=== PATIENT | female | born 1935 | race Caucasian/White ===

== ENCOUNTER → 2016-08-02 17:45 | Outpatient (CLI) | payer MEDICARE, BC | END | disposition home or self-care (01) | LOC: D.MAMMO 09:30 | DX: Z85.3 Personal history of malignant neoplasm of breast (principal) ==

== ENCOUNTER 2016-08-09 15:20 | Emergency (ER) | payer MEDICARE, BC ==
[2016-08-09 16:27] LABS: BASOPHILS 0.1 % (0.0-2.0); EOSINOPHILS 0 % (0-7); HEMATOCRIT 37.3 % (36.0-48.0); HEMOGLOBIN 12.4 g/dL (12-16); IMMATURE GRANULOCYTES 0.3 % (0-5); MCH 28.2 pg (26.0-34.0); MCHC 33.2 g/dL (31.0-37.0); NEUTROPHILS 79.6 % (40-80); PLATELET COUNT 319 10x3/uL (130-400); RBC 4.39 10x6/uL (4.00-5.40); RDW 13.6 % (11.5-14.5); WBC 11.1 10x3/uL (4.8-10.8)
[2016-08-09 16:42] LABS: ALBUMIN 3.8 g/dL (3.4-5.0); ANION GAP 12.4 mmol/L (8-16); BILIRUBIN - TOTAL 0.45 mg/dL (0.2-1.3); CALCIUM 9.7 mg/dL (8.5-10.1); CARBON DIOXIDE 28.7 mmol/L (21.0-32.0); CREATININE - SERUM 0.8 mg/dL (0.6-1.3); PROTEIN - SERUM 7.8 g/dL (6.4-8.2)
[2016-08-09 16:45] LABS: POTASSIUM - SERUM 4.1 mmol/L (3.5-5.1)
[2016-08-09 17:56] LABS: APPEARANCE HAZY (CLEAR); BILIRUBIN NEGATIVE (NEGATIVE); COLOR YELLOW (YELLOW); GLUCOSE NEGATIVE (NEGATIVE); KETONE NEGATIVE (NEGATIVE); LEUKOCYTE ESTERASE NEGATIVE (NEGATIVE); NITRITE NEGATIVE (NEGATIVE); PROTEIN NEGATIVE (NEGATIVE); UROBILINOGEN NORMAL (NORMAL)
== END 2016-08-09 19:19 | disposition home or self-care (01) ==
LOC: D.ER 15:20
PROVIDERS: Emergency Medicine
DX: E86.0 Dehydration (principal); K52.9 Noninfective gastroenteritis and colitis, unspecified

== ENCOUNTER → 2016-09-10 07:50 | Outpatient (CLI) | payer MEDICARE, BC | END | disposition home or self-care (01) | LOC: D.US 07:50 | DX: R10.13 Epigastric pain (principal) ==

== ENCOUNTER → 2017-04-09 08:25 | Outpatient (CLI) | payer MEDICARE, BC | END | disposition home or self-care (01) | LOC: D.US 08:25 | DX: Z85.3 Personal history of malignant neoplasm of breast (principal); Z90.11 Acquired absence of right breast and nipple ==

== ENCOUNTER 2017-05-05 09:21 | Emergency (ER) | payer MEDICARE, BC | END 2017-05-05 12:48 | disposition home or self-care (01) | LOC: D.ER 09:21 | DX: R07.81 Pleurodynia (principal) ==

== ENCOUNTER → 2017-07-16 07:32 | Outpatient (CLI) | payer MEDICARE, BC | END | disposition home or self-care (01) | LOC: D.NM 07-11 13:00 | DX: R10.11 Right upper quadrant pain (principal) ==

== ENCOUNTER → 2017-08-26 17:17 | Outpatient (CLI) | payer MEDICARE, BC | END | disposition home or self-care (01) | LOC: D.MAMMO 10:30 | DX: N64.4 Mastodynia (principal) ==

== ENCOUNTER 2018-01-02 17:44 | Emergency (ER) | payer MEDICARE, BC ==
[~2018-01-02] VITALS: Ht 157.5 cm; Wt 75.0 kg
[2018-01-02 18:02] VITALS: Ht 157.5 cm; Wt 75.0 kg
[2018-01-02] MEDS ORDERED: PRAVACHOL40 MG PO (18:03)
[2018-01-02] MEDS ORDERED: PEPCID20 MG PO (18:03)
[2018-01-02] MEDS ORDERED: OMEPRAZOLE20 M1 PO (18:03)
[2018-01-02] MEDS ORDERED: NORVASC5 MG PO (18:03)
[2018-01-02] MEDS ORDERED: COZAAR100 MG PO (18:04)
[2018-01-02] MEDS ORDERED: HUMULIN N100 U/ML SC (18:04)
[2018-01-02] MEDS ORDERED: MYRBETRIQ25 MG PO (18:04)
[2018-01-02] MEDS ORDERED: COMBIGAN OPHT DR5 ML EACH EYE (18:05)
[2018-01-02] MEDS ORDERED: HUMALOG 30100 UNITS/ SC (18:05)
[2018-01-02] MEDS ORDERED: AZOPT 1% OPHT D10 ML EACH EYE (18:05)
[2018-01-02] MEDS ORDERED: XALATAN 0.0052.5 ML EACH EYE (18:05)
[2018-01-02] MEDS ORDERED: MIRALAX17 GM PO (18:06)
[2018-01-02 18:54] LABS: APPEARANCE CLEAR (CLEAR); COLOR STRAW (YELLOW); NITRITE NEGATIVE (NEGATIVE); PROTEIN NEGATIVE (NEGATIVE); SPECIFIC GRAVITY 1.005 (1.005-1.020)
[2018-01-02 18:55] LABS: BILIRUBIN NEGATIVE (NEGATIVE); GLUCOSE 50 mg/dL (NEGATIVE); KETONE NEGATIVE (NEGATIVE); UROBILINOGEN NORMAL (NORMAL)
[2018-01-02 19:21] LABS: BASOPHILS 0.3 % (0-2); EOSINOPHILS 3.9 % (0-7); HEMATOCRIT 35.9 % (36.0-48.0); HEMOGLOBIN 11.7 g/dL (12-16); IMMATURE GRANULOCYTES 0.3 % (0-5); LYMPHOCYTES 16.7 % (15-50); MCH 27.9 pg (26.0-34.0); MCHC 32.6 g/dL (31.0-37.0); MCV 85.5 fL (80.0-100.0); MEAN PLATELET VOLUME 9.9 fL (7.4-10.4); MONOCYTES 11.2 % (2-11); NEUTROPHILS 67.6 % (40-80); PLATELET COUNT 276 10x3/uL (130-400); RDW 13.9 % (11.5-14.5); WBC 11.6 10x3/uL (4.8-10.8)
[2018-01-02 19:34] LABS: ALBUMIN 3.1 g/dL (3.4-5.0); ANION GAP 10.9 mmol/L (8-16); BILIRUBIN - TOTAL 0.28 mg/dL (0.2-1.3); CALCIUM 8.9 mg/dL (8.5-10.1); CARBON DIOXIDE 26.6 mmol/L (21.0-32.0); POTASSIUM - SERUM 4.5 mmol/L (3.5-5.1); PROTEIN - SERUM 7.3 g/dL (6.4-8.2)
[2018-01-02] MEDS ORDERED: FLAGYL500 MG PO (22:10)
[2018-01-02] MEDS ORDERED: CIPRO500 MG PO (22:10)
[2018-01-02] MEDS ORDERED: ZOFRAN ODT4 MG/UDTAB PO ×2 (22:12)
[2018-01-02 22:30] VITALS: BP 176/90
== END 2018-01-02 22:30 | disposition home or self-care (01) ==
LOC: D.ER 17:44
PROVIDERS: Emergency Medicine
DX: K57.92 Diverticulitis of intestine, part unspecified, without perforation or abscess without bleeding (principal); E11.9 Type 2 diabetes mellitus without complications; I10 Essential (primary) hypertension; Z95.0 Presence of cardiac pacemaker

== ENCOUNTER → 2018-01-20 13:03 | Outpatient (CLI) | payer MEDICARE, BC ==
[2018-01-02 18:02] VITALS: BMI 30.2
[~2018-01-20 13:03] MED LIST: AZOPT 1% OPHT D10 ML EACH EYE; CIPRO500 MG PO; COMBIGAN OPHT DR5 ML EACH EYE; COZAAR100 MG PO; FLAGYL500 MG PO; HUMALOG 30100 UNITS/ SC; HUMULIN N100 U/ML SC; MIRALAX17 GM PO; MYRBETRIQ25 MG PO; NORVASC5 MG PO; OMEPRAZOLE20 M1 PO; PEPCID20 MG PO; PRAVACHOL40 MG PO; XALATAN 0.0052.5 ML EACH EYE; ZOFRAN ODT4 MG/UDTAB PO
== END | disposition home or self-care (01) ==
LOC: D.CT 13:03
DX: M54.16 Radiculopathy, lumbar region (principal)

== ENCOUNTER 2018-05-02 08:31 | Emergency (ER) | payer MEDICARE, BC ==
[~2018-05-02] VITALS: Ht 157.5 cm; Wt 74.1 kg
[2018-05-02 08:50] VITALS: Ht 157.5 cm; Wt 74.1 kg
[2018-05-02 09:46] LABS: BASOPHILS 0.1 % (0-2); EOSINOPHILS 1.2 % (0-7); HEMATOCRIT 35.8 % (36.0-48.0); HEMOGLOBIN 11.7 g/dL (12-16); IMMATURE GRANULOCYTES 0.3 % (0-5); LYMPHOCYTES 10.6 % (15-50); MCH 28.5 pg (26.0-34.0); MCHC 32.7 g/dL (31.0-37.0); MCV 87.3 fL (80.0-100.0); MEAN PLATELET VOLUME 10.4 fL (7.4-10.4); MONOCYTES 7.4 % (2-11); NEUTROPHILS 80.4 % (40-80); PLATELET COUNT 304 10x3/uL (130-400); RDW 14.8 % (11.5-14.5); WBC 13.9 10x3/uL (4.8-10.8)
[2018-05-02 09:54] LABS: APPEARANCE CLEAR (CLEAR); BILIRUBIN NEGATIVE (NEGATIVE); COLOR YELLOW (YELLOW); GLUCOSE NEGATIVE (NEGATIVE); KETONE NEGATIVE (NEGATIVE); NITRITE NEGATIVE (NEGATIVE); PROTEIN NEGATIVE (NEGATIVE); UROBILINOGEN NORMAL (NORMAL)
[2018-05-02 09:55] LABS: BACTERIA FEW /hpf (NONE SEEN); EPITHELIAL CELLS 0-5 /hpf (0-5); RED CELLS - URINE 0-5 /hpf (0-5); WHITE CELLS - URINE 0-5 /hpf (0-5)
[2018-05-02 10:00] LABS: ALBUMIN 3.2 g/dL (3.4-5.0); ANION GAP 14.9 mmol/L (8-16); BILIRUBIN - TOTAL 0.31 mg/dL (0.2-1.3); CALCIUM 9.3 mg/dL (8.5-10.1); CARBON DIOXIDE 24.5 mmol/L (21.0-32.0); CREATININE - SERUM 0.9 mg/dL (0.6-1.3); POTASSIUM - SERUM 4.4 mmol/L (3.5-5.1); PROTEIN - SERUM 7.5 g/dL (6.4-8.2)
[2018-05-02] MEDS ORDERED: TYLENOL W/CODEI1 TAB PO (13:12)
[2018-05-02] MEDS ORDERED: LEVOFLOXACIN500 MG PO (13:12)
[2018-05-02] MEDS ORDERED: FLAGYL500 MG PO (13:12)
[2018-05-02 13:56] VITALS: BP 117/56
== END 2018-05-02 13:57 | disposition home or self-care (01) ==
LOC: D.ER 08:31
PROVIDERS: Family Medicine
DX: K57.92 Diverticulitis of intestine, part unspecified, without perforation or abscess without bleeding (principal); I10 Essential (primary) hypertension; E11.9 Type 2 diabetes mellitus without complications; Z85.3 Personal history of malignant neoplasm of breast

== ENCOUNTER 2018-05-07 12:48 | Emergency (ER) | payer MEDICARE, BC ==
[~2018-05-07] VITALS: Ht 157.5 cm; Wt 74.1 kg
[~2018-05-07 12:48] MED LIST changes: +LEVOFLOXACIN500 MG PO; +TYLENOL W/CODEI1 TAB PO
[2018-05-07 12:50] VITALS: BP 162/75; Ht 157.5 cm; Wt 74.1 kg
[2018-05-07] MEDS ORDERED: COZAAR50 MG PO (13:16)
[2018-05-07] MEDS ORDERED: RESTORIL15 MG PO (13:16)
[2018-05-07] MEDS ORDERED: HUMULIN N100 U/ML SC (13:18)
[2018-05-07] MEDS ORDERED: COMBIGAN OPHT DR5 ML EACH EYE (13:19)
[2018-05-07] MEDS ORDERED: AZOPT 1% OPHT D10 ML EACH EYE (13:20)
[2018-05-07] MEDS ORDERED: XALATAN 0.0052.5 ML EACH EYE (13:20)
[2018-05-07] MEDS ORDERED: SYSTANE NIGHTT3.5 GM EACH EYE (13:21)
[2018-05-07] MEDS ORDERED: TOBREX5 ML (13:22)
[2018-05-07] MEDS ORDERED: CARAFATE1 G PO (13:22)
[2018-05-07 13:55] LABS: BASOPHILS 0.3 % (0-2); EOSINOPHILS 1.3 % (0-7); HEMATOCRIT 38.5 % (36.0-48.0); HEMOGLOBIN 12.7 g/dL (12-16); IMMATURE GRANULOCYTES 0.1 % (0-5); LYMPHOCYTES 16.9 % (15-50); MCH 28.7 pg (26.0-34.0); MCV 86.9 fL (80.0-100.0); MEAN PLATELET VOLUME 10.2 fL (7.4-10.4); MONOCYTES 8.9 % (2-11); NEUTROPHILS 72.5 % (40-80); PLATELET COUNT 314 10x3/uL (130-400); RBC 4.43 10x6/uL (4.00-5.40); RDW 14.4 % (11.5-14.5); WBC 9.1 10x3/uL (4.8-10.8)
[2018-05-07] MEDS ORDERED: ANALPRAM HC 2.530 GM RC (15:05)
== END 2018-05-07 15:16 | disposition home or self-care (01) ==
LOC: D.ER 12:48
PROVIDERS: Family Medicine
DX: K62.89 Other specified diseases of anus and rectum (principal); E11.9 Type 2 diabetes mellitus without complications; I10 Essential (primary) hypertension

== ENCOUNTER → 2018-05-29 11:37 | Day surgery (SDC) | payer MEDICARE, BC ==
[~2018-05-29] VITALS: Ht 157.5 cm; Wt 74.1 kg
--- NOTE | ~2018-05-29 | OP ---
PATIENT NAME: MATT RUGGIERO MEDICAL RECORD: [id number] :37 LOCATION:D.OPS ADMISSION DATE: SURGEON: CATHIE GUERRA MD DATE OF OPERATION: 05/29/2018 PROCEDURE: EGD with biopsy, EGD with balloon dilatation. STEREO OPERATOR: Cathie Guerra MD SCOPE: Olympus video gastroscope. MEDICATIONS: Per TIVA anesthesia. The patient received 80 mg of propofol IV push for this procedure, O2 of 4 liters. INDICATION FOR THE PROCEDURE: Dysphagia, gastroesophageal reflux disease as well as abdominal pain. FINDINGS: Informed consent was given. The patient was made comfortable with the above medications. After reaching an adequate level of sedation by slow IV push, the patient was placed on her left side. The endoscope was then advanced under direct visualization through the posterior pharyngeal area and advanced to the distal esophagus. A very thick Schatzki's ring was appreciated in this area followed by a large hiatal hernia, which was noted on both direct and retroflex views. We did place a CRE Microvasive balloon in this strictured area and slowly dilated to 60 South [place] and held the balloon in place for 1 minute without complication. We proceeded then to take multiple biopsies off this ring to further relax the area. The patient did appear to have a twist of the gastroesophageal junction and I suspect that she may be slowly developing volvulus. We then passed the scope through the hiatal hernia where the patient had a copious amount of hemorrhagic gastritis with oozing of the gastric mucosa. This area was washed and no ulcers were seen. She simply has very significant inflammation in this area, which is bleeding. We then proceeded to advance the scope into the gastric area where some erosions were noted at the antral area and biopsies were taken. No ulcers again were appreciated. The duodenal bulb to the second portion had mild inflammation with some erythema and edema and a very slight amount of hemorrhagic oozing was observed. Biopsies were obtained. The scope was then withdrawn. IMPRESSION: 1. Distal esophageal stricture dilated to 60-[place] Korean without complication very thick Schatzki's ring biopsied also erosive distal esophagitis. 2. The patient is possibly beginning to have a slight developing volvulus with a twist noted at the gastroesophageal junction causing some irregular placement of the scope. 3. Medium-sized hiatal hernia with hemorrhagic gastritis. 4. Gastric erosions, some bilious gastritis observed. Biopsy taken at the antral area. 5. Mild duodenitis with a slight amount of hemorrhage noted. Biopsy obtained. PLAN: 1. We will ask the patient to take sucralfate 1 g p.o. q.i.d. 2. Recommend famotidine 20 mg p.o. b.i.d. 3. Avoid nonsteroidal anti-inflammatory drugs. 4. The patient to follow reflux precautions stringently, both dietary and positional. OPERATIVE REPORT [id number] MATT RUGGIERO 5. Return to clinic on a p.r.n. basis. 6. Would recommend an upper GI, looking for the presence of a volvulus. TRANSINT:[id number] Voice Confirmation ID: [id number] DOCUMENT ID: [id number] CATHIE GUERRA MD CC: NGUYEN PEREIRA and SOCRATES BILLS [id number] DICTATION DATE: 05/29/18 1459 PAPIER MACHE MOLDER: 05/29/182012 [facility] [address] [place] [address]
[~2018-05-29 11:37] MED LIST changes: +ANALPRAM HC 2.530 GM RC; +CARAFATE1 G PO; +COZAAR50 MG PO; +RESTORIL15 MG PO; +SYSTANE NIGHTT3.5 GM EACH EYE; +TOBREX5 ML
[2018-05-29 12:13] LABS: CALC OSMOLALITY 281 mosm/kg (275-300); CALCIUM 9.7 mg/dL (8.5-10.1); CARBON DIOXIDE 24.6 mmol/L (21.0-32.0); CHLORIDE - SERUM 101 mmol/L (98-107); CREATININE - SERUM 0.7 mg/dL (0.6-1.3); POTASSIUM - SERUM 4.8 mmol/L (3.5-5.1); SODIUM 134 mmol/L (136-145); UREA NITROGEN 17 mg/dL (7-18); eGFR NON AFRICAN AMERICAN 85 mL/min (90-120)
[2018-05-29 12:14] LABS: GLUCOSE 323 mg/dL (74-106)
[2018-05-29 12:33] LABS: HEMATOCRIT 41.2 % (36.0-48.0); HEMOGLOBIN 13.3 g/dL (12-16); MCH 28.1 pg (26.0-34.0); MCHC 32.3 g/dL (31.0-37.0); MCV 87.1 fL (80.0-100.0); MEAN PLATELET VOLUME 10.8 fL (7.4-10.4); RBC 4.73 10x6/uL (4.00-5.40); RDW 14.9 % (11.5-14.5); WBC 6.3 10x3/uL (4.8-10.8)
[2018-05-29 13:50] VITALS: BP 148/74; Ht 157.5 cm; Wt 74.1 kg
== END | disposition home or self-care (01) ==
LOC: D.OPS 11:37
PROVIDERS: Anesthesiology
DX: K22.2 Esophageal obstruction (principal); K44.9 Diaphragmatic hernia without obstruction or gangrene; K22.10 Ulcer of esophagus without bleeding; K29.61 Other gastritis with bleeding; K29.80 Duodenitis without bleeding; K21.0 Gastro-esophageal reflux disease with esophagitis; Z01.812 Encounter for preprocedural laboratory examination

== ENCOUNTER → 2018-05-30 13:20 | Outpatient (CLI) | payer MEDICARE, BC ==
[2018-05-29 13:50] VITALS: BMI 29.9
== END | disposition home or self-care (01) ==
LOC: D.US 13:20
DX: Z12.31 Encounter for screening mammogram for malignant neoplasm of breast (principal)

== ENCOUNTER → 2018-06-12 06:57 | Outpatient (CLI) | payer MEDICARE, BC ==
[2018-05-29 13:50] VITALS: BMI 29.9
[~2018-06-12 06:57] MED LIST changes: +MACROBID100 MG PO
== END | disposition home or self-care (01) ==
LOC: D.RAD 06:57
DX: R10.11 Right upper quadrant pain (principal)

== ENCOUNTER 2018-06-15 17:41 | Emergency (ER) | payer MEDICARE, BC ==
[~2018-06-15] VITALS: Ht 157.5 cm; Wt 72.7 kg
[~2018-06-15 17:41] MED LIST changes: -MACROBID100 MG PO
[2018-06-15 17:54] VITALS: Ht 157.5 cm; Wt 72.7 kg
[2018-06-15 18:44] LABS: APPEARANCE CLEAR (CLEAR); BASOPHILS 0.5 % (0-2); BILIRUBIN NEGATIVE (NEGATIVE); COLOR STRAW (YELLOW); EOSINOPHILS 2.9 % (0-7); GLUCOSE NEGATIVE (NEGATIVE); HEMOGLOBIN 11.8 g/dL (12-16); IMMATURE GRANULOCYTES 0.2 % (0-5); KETONE NEGATIVE (NEGATIVE); LYMPHOCYTES 17.8 % (15-50); MCH 28.5 pg (26.0-34.0); MCHC 33.7 g/dL (31.0-37.0); MCV 84.5 fL (80.0-100.0); MEAN PLATELET VOLUME 11.2 fL (7.4-10.4); MONOCYTES 10.7 % (2-11); NEUTROPHILS 67.9 % (40-80); NITRITE NEGATIVE (NEGATIVE); PROTEIN NEGATIVE (NEGATIVE); RBC 4.14 10x6/uL (4.00-5.40); RDW 14.9 % (11.5-14.5); UROBILINOGEN NORMAL (NORMAL); WBC 8.6 10x3/uL (4.8-10.8)
[2018-06-15 18:45] LABS: BACTERIA MODERATE /hpf (NONE SEEN); RED CELLS - URINE 0-5 /hpf (0-5)
[2018-06-15 18:46] LABS: EPITHELIAL CELLS 0-5 /hpf (0-5)
[2018-06-15 18:48] LABS: PLATELET COUNT 312 10x3/uL (130-400)
[2018-06-15 18:55] LABS: ALBUMIN 3.6 g/dL (3.4-5.0); ANION GAP 15.3 mmol/L (8-16); BILIRUBIN - TOTAL 0.38 mg/dL (0.2-1.3); CALCIUM 9.8 mg/dL (8.5-10.1); CARBON DIOXIDE 26.9 mmol/L (21.0-32.0); CREATININE - SERUM 0.8 mg/dL (0.6-1.3); POTASSIUM - SERUM 4.2 mmol/L (3.5-5.1); PROTEIN - SERUM 7.5 g/dL (6.4-8.2)
[2018-06-15] MEDS ORDERED: MACROBID100 MG PO (20:30)
[2018-06-15] MEDS ORDERED: ZOFRAN ODT4 MG/UDTAB PO (20:30)
[2018-06-15 21:05] VITALS: BP 167/87
== END 2018-06-15 21:05 | disposition home or self-care (01) ==
LOC: D.ER 17:41
PROVIDERS: Family Medicine
DX: N39.0 Urinary tract infection, site not specified (principal); K44.9 Diaphragmatic hernia without obstruction or gangrene; R11.2 Nausea with vomiting, unspecified; E11.9 Type 2 diabetes mellitus without complications; I10 Essential (primary) hypertension; Z85.3 Personal history of malignant neoplasm of breast

== ENCOUNTER → 2018-07-04 12:56 | Outpatient (CLI) | payer MEDICARE, BC ==
[2018-06-15 17:54] VITALS: BMI 29.3
[~2018-07-04 12:56] MED LIST changes: +MACROBID100 MG PO
== END | disposition home or self-care (01) ==
LOC: D.US 12:56
DX: R92.8 Other abnormal and inconclusive findings on diagnostic imaging of breast (principal)

== ENCOUNTER 2018-08-02 02:16 | Emergency (ER) | payer MEDICARE, BC ==
[~2018-08-02] VITALS: Ht 157.5 cm; Wt 71.8 kg
[2018-08-02 02:22] VITALS: Ht 157.5 cm; Wt 71.8 kg
[2018-08-02 03:53] LABS: BASOPHILS 0.2 % (0-2); EOSINOPHILS 2.1 % (0-7); HEMATOCRIT 35.2 % (36.0-48.0); HEMOGLOBIN 11.7 g/dL (12-16); IMMATURE GRANULOCYTES 0.2 % (0-5); MCH 28.2 pg (26.0-34.0); MCHC 33.2 g/dL (31.0-37.0); MCV 84.8 fL (80.0-100.0); MEAN PLATELET VOLUME 10.3 fL (7.4-10.4); MONOCYTES 8.3 % (2-11); NEUTROPHILS 74.2 % (40-80); PLATELET COUNT 301 10x3/uL (130-400); RBC 4.15 10x6/uL (4.00-5.40); RDW 13.9 % (11.5-14.5); WBC 9.7 10x3/uL (4.8-10.8)
[2018-08-02 04:06] LABS: ALBUMIN 3.5 g/dL (3.4-5.0); ALKALINE PHOSPHATASE 63 U/L (46-116); ALT (SGPT) 17 U/L (10-68); BILIRUBIN - TOTAL 0.31 mg/dL (0.2-1.3); CALC OSMOLALITY 274 mosm/kg (275-300); CALCIUM 9.3 mg/dL (8.5-10.1); CARBON DIOXIDE 25.8 mmol/L (21.0-32.0); CHLORIDE - SERUM 102 mmol/L (98-107); CREATININE - SERUM 0.6 mg/dL (0.6-1.3); MAGNESIUM - SERUM 1.9 mg/dL (1.8-2.4); PROTEIN - SERUM 7.2 g/dL (6.4-8.2); SODIUM 138 mmol/L (136-145); UREA NITROGEN 17 mg/dL (7-18); eGFR NON AFRICAN AMERICAN > 90 mL/min (90-120)
[2018-08-02 04:08] LABS: GLUCOSE 43 mg/dL (74-106)
[2018-08-02] MEDS ORDERED: K-DUR20 MEQ PO (04:22)
[2018-08-02] MEDS ORDERED: ZOFRAN ODT4 MG/UDTAB PO (04:22)
[2018-08-02 05:15] VITALS: BP 142/59
== END 2018-08-02 05:15 | disposition home or self-care (01) ==
LOC: D.ER 02:16
PROVIDERS: Emergency Medicine
DX: R11.10 Vomiting, unspecified (principal); D64.9 Anemia, unspecified; E11.649 Type 2 diabetes mellitus with hypoglycemia without coma; E87.6 Hypokalemia; I10 Essential (primary) hypertension

== ENCOUNTER 2018-10-19 00:48 | Emergency (ER) | payer MEDICARE, BC ==
[~2018-10-19] VITALS: Ht 157.5 cm; Wt 75.0 kg
[~2018-10-19 00:48] MED LIST changes: +K-DUR20 MEQ PO
[2018-10-19 00:53] VITALS: Ht 157.5 cm; Wt 75.0 kg
[2018-10-19] MEDS ORDERED: HUMULIN N100 U/ML SQ (00:56)
[2018-10-19 01:10] LABS: APPEARANCE HAZY (CLEAR); BILIRUBIN NEGATIVE (NEGATIVE); COLOR YELLOW (YELLOW); GLUCOSE NEGATIVE (NEGATIVE); KETONE NEGATIVE (NEGATIVE); NITRITE NEGATIVE (NEGATIVE); PROTEIN NEGATIVE (NEGATIVE); UROBILINOGEN NORMAL (NORMAL)
[2018-10-19 01:11] LABS: BACTERIA MANY /hpf (NONE SEEN); EPITHELIAL CELLS NSEEN /hpf (0-5); RED CELLS - URINE NONE SEEN /hpf (0-5); WHITE CELLS - URINE 25-50 /hpf (0-5)
[2018-10-19] MEDS ORDERED: KEFLEX500 MG PO (01:59)
[2018-10-19 03:13] VITALS: BP 154/70
== END 2018-10-19 03:13 | disposition home or self-care (01) ==
LOC: D.ER 00:48
PROVIDERS: Family Medicine
DX: R33.9 Retention of urine, unspecified (principal); N39.0 Urinary tract infection, site not specified

== ENCOUNTER 2018-10-27 10:04 | Emergency (ER) | payer MEDICARE, BC ==
[~2018-10-27 10:04] MED LIST changes: +HUMULIN N100 U/ML SQ; +KEFLEX500 MG PO
[2018-10-27 10:08] VITALS: BMI 28.4
[2018-10-27] MEDS ORDERED: CIPRO500 MG PO (10:14)
[2018-10-27 11:15] LABS: APPEARANCE HAZY (CLEAR); BILIRUBIN NEGATIVE (NEGATIVE); COLOR YELLOW (YELLOW); GLUCOSE 500 mg/dL (NEGATIVE); KETONE SMALL mg/dL (NEGATIVE); NITRITE NEGATIVE (NEGATIVE); PROTEIN NEGATIVE (NEGATIVE); SPECIFIC GRAVITY 1.025 (1.005-1.020); UROBILINOGEN NORMAL (NORMAL)
[2018-10-27 11:16] LABS: BACTERIA FEW /hpf (NONE SEEN); EPITHELIAL CELLS 0-5 /hpf (0-5); HYALINE CAST RARE /lpf (NONE SEEN); MUCUS <1+ /lpf (NONE SEEN); RED CELLS - URINE RARE /hpf (0-5); WHITE CELLS - URINE 0-5 /hpf (0-5); YEAST <1+ /hpf (NONE SEEN)
[2018-10-27] MEDS ORDERED: DIFLUCAN150 MG PO (11:50)
[2018-10-27 12:10] VITALS: BP 114/60
== END 2018-10-27 12:10 | disposition home or self-care (01) ==
LOC: D.ER 10:04
PROVIDERS: Emergency Medicine
DX: N39.0 Urinary tract infection, site not specified (principal); E11.9 Type 2 diabetes mellitus without complications; I10 Essential (primary) hypertension; N76.0 Acute vaginitis

== ENCOUNTER 2018-12-10 10:09 | Emergency (ER) | payer MEDICARE, BC ==
[~2018-12-10] VITALS: Ht 157.5 cm; Wt 69.1 kg
[~2018-12-10 10:09] MED LIST changes: +DIFLUCAN150 MG PO
[2018-12-10 10:11] VITALS: Ht 157.5 cm; Wt 69.1 kg
[2018-12-10] MEDS ORDERED: AZOPT 1% OPHT D10 ML EACH EYE (10:15)
[2018-12-10 11:14] LABS: APPEARANCE CLEAR (CLEAR); BILIRUBIN NEGATIVE (NEGATIVE); COLOR STRAW (YELLOW); GLUCOSE 250 mg/dL (NEGATIVE); KETONE NEGATIVE (NEGATIVE); NITRITE NEGATIVE (NEGATIVE); PROTEIN NEGATIVE (NEGATIVE); SPECIFIC GRAVITY 1.005 (1.005-1.020); UROBILINOGEN NORMAL (NORMAL)
[2018-12-10 11:29] LABS: BASOPHILS 0.6 % (0-2); EOSINOPHILS 2.3 % (0-7); HEMATOCRIT 40.1 % (36.0-48.0); HEMOGLOBIN 13.3 g/dL (12-16); IMMATURE GRANULOCYTES 0.5 % (0-5); LYMPHOCYTES 19.6 % (15-50); MCH 28.8 pg (26.0-34.0); MCHC 33.2 g/dL (31.0-37.0); MCV 86.8 fL (80.0-100.0); MEAN PLATELET VOLUME 10.7 fL (7.4-10.4); MONOCYTES 6.2 % (2-11); NEUTROPHILS 70.8 % (40-80); RBC 4.62 10x6/uL (4.00-5.40); RDW 15.6 % (11.5-14.5); WBC 6.6 10x3/uL (4.8-10.8)
[2018-12-10 11:30] LABS: PLATELET COUNT 168 10x3/uL (130-400)
[2018-12-10 11:44] LABS: ALBUMIN 4.3 g/dL (3.4-5.0); ALKALINE PHOSPHATASE 65 U/L (46-116); ALT (SGPT) 28 U/L (10-68); CALC OSMOLALITY 285 mosm/kg (275-300); CALCIUM 10.3 mg/dL (8.5-10.1); CHLORIDE - SERUM 103 mmol/L (98-107); CREATININE - SERUM 0.6 mg/dL (0.6-1.3); POTASSIUM - SERUM 4.2 mmol/L (3.5-5.1); PROTEIN - SERUM 8.1 g/dL (6.4-8.2); SODIUM 139 mmol/L (136-145); UREA NITROGEN 19 mg/dL (7-18); eGFR NON AFRICAN AMERICAN > 90 mL/min (90-120)
[2018-12-10 11:45] LABS: GLUCOSE 211 mg/dL (74-106)
[2018-12-10 12:30] VITALS: BP 144/55
== END 2018-12-10 12:40 | disposition home or self-care (01) ==
LOC: D.ER 10:09
PROVIDERS: Family Medicine
DX: M54.5 Low back pain (principal)

== ENCOUNTER 2018-12-23 09:33 | Inpatient (IN) | payer MEDICARE, BC ==
[~2018-12-23] VITALS: Ht 157.5 cm; Wt 69.1 kg
[2018-12-23 10:24] LABS: BASOPHILS 0.2 % (0-2); HEMOGLOBIN 13.1 g/dL (12-16); IMMATURE GRANULOCYTES 0.2 % (0-5); LYMPHOCYTES 16.8 % (15-50); MCHC 33.6 g/dL (31.0-37.0); MCV 86.5 fL (80.0-100.0); MEAN PLATELET VOLUME 10.2 fL (7.4-10.4); MONOCYTES 4.8 % (2-11); RBC 4.51 10x6/uL (4.00-5.40); RDW 15.3 % (11.5-14.5); WBC 12.2 10x3/uL (4.8-10.8)
[2018-12-23 10:35] VITALS: BP 142/63
[2018-12-23 10:39] LABS: PLATELET COUNT 327 10x3/uL (130-400)
[2018-12-23 10:43] LABS: ALBUMIN 4.3 g/dL (3.4-5.0); ALKALINE PHOSPHATASE 81 U/L (46-116); ALT (SGPT) 31 U/L (10-68); BILIRUBIN - TOTAL 0.45 mg/dL (0.2-1.3); CALC OSMOLALITY 280 mosm/kg (275-300); CALCIUM 10.3 mg/dL (8.5-10.1); CARBON DIOXIDE 24.8 mmol/L (21.0-32.0); CHLORIDE - SERUM 99 mmol/L (98-107); CREATININE - SERUM 0.9 mg/dL (0.6-1.3); GLUCOSE 255 mg/dL (74-106); POTASSIUM - SERUM 4.9 mmol/L (3.5-5.1); PROTEIN - SERUM 8.4 g/dL (6.4-8.2); SODIUM 134 mmol/L (136-145); UREA NITROGEN 24 mg/dL (7-18); eGFR NON AFRICAN AMERICAN 63 mL/min (90-120)
[2018-12-23 10:44] LABS: AMYLASE - SERUM 48 U/L (25-115); LIPASE 171 U/L (73-393); TROPONIN-I < 0.017 ng/mL (0.000-0.060)
--- NOTE | 2018-12-23 10:45 | NUR ---
URINE SAMPLE SENT TO LAB AT THIS TIME. PT IS LAYING IN SEMI-FOWLERS POSITION. BREATHING IS EVEN AND UNLABORED. WARM BLANKET PROVIDED FOR COMFORT AND PT CHANGED INTO GOWN. PT DENIES FURTHER NEEDS AT THIS TIME. WILL CONTINUE TO MONITOR.
[2018-12-23 10:53] LABS: APPEARANCE CLEAR (CLEAR); BILIRUBIN NEGATIVE (NEGATIVE); COLOR YELLOW (YELLOW); GLUCOSE 250 mg/dL (NEGATIVE); KETONE NEGATIVE (NEGATIVE); NITRITE NEGATIVE (NEGATIVE); PROTEIN NEGATIVE (NEGATIVE); SPECIFIC GRAVITY 1.015 (1.005-1.020); UROBILINOGEN NORMAL (NORMAL)
--- NOTE | 2018-12-23 11:01 | NUR ---
PT LEAVING ED VIA STRETCHER TO MEDICAL IMAGING FOR ORDERED CT AT THIS TIME.
[2018-12-23 11:45] VITALS: BP 116/60
--- NOTE | 2018-12-23 13:11 | MORECARE ---
CASE MANAGEMENT DISCHARGE SUMMARY PATIENT: MANUEL RUGGIERO UNIT: [id number] ADM DATE: 12/23/18 AGE: 83 : 36 SEX: F ROOM/BED: D.2211 AUTHOR: JUJU BAIRD PHYSICIAN: REFERRING PHYSICIAN: OSIRIS JEAN BAPTISTE MD DATE OF SERVICE: 12/23/18 Discharge Plan Patient Name: MANUEL RUGGIERO Facility: [facility]:[place] : 1935 Planned Disposition: Home Anticipated Discharge Date: 12/26/18 Discharge Date: Expected LOS: 3 Initial Reviewer: [email or web address] Initial Review Date: 12/23/2018 Generated: 12/23/18 2:11 pm DCP- Discharge Planning Updated by [email or web address]: Mireya Garcia on 12/23/18 12:[address] Patient Name: MANUEL RUGGIERO Admission Status: ER Accout number: [id number] Admission Date: 12-23-2018 : 1935 Admission Diagnosis: Attending: OSIRIS JEAN BAPTISTE Current LOS: 1 Anticipated DC Date: 12-26-2018 Planned Disposition: Home with . Primary Insurance: MEDICARE A & B Discharge Planning Comments: CM met with patient and her to complete initial dc planning assessment. CM educated patient on the CM role and verbal consent given by patient to complete assessment. CM verified patient's address, phone number, and emergency contact phone numbers. Patient lives at home with her . She reports she is mostly independent in her care at home but does not do much housework anymore. At discharge patient plans to return home and feels this is a safe discharge. CM discussed availability of home health, rehab services, and medical equipment. Patient denied known discharge needs at this time. Patient reports her will transport her home at time of discharge. CM will continue to follow and will assist as needed with dc plans/needs. Library Services Assistant: Mireya Garcia RN, [facility] DCPIA - Discharge Planning Initial Assessment Updated by [email or web address]: Mireya Garcia on 12/23/18 1:06 pm * Is the patient Alert and Oriented? Yes * How many steps to enter\exit or inside your home? None * PCP Dr. Bradshaw * Pharmacy [facility] or [facility] in [place] * Preadmission Environment Home with Family * ADLs Independent * Equipment Rolling Walker * List name and contact numbers for known caregivers / representatives who currently or will assist patient after discharge: Lynda Dumont - shonna - [phone] * Verbal permission to speak to the caregivers and representatives has been obtained from the patient. Yes * Community resources currently utilized None * Additional services required to return to the preadmission environment? No * Can the patient safely return to the preadmission environment? Yes * Has this patient been hospitalized within the prior 30 days at any hospital? No Patient Name: MANUEL RUGGIERO Page [phone] at 1311 All edits/amendments must be made on the electronic document DICTATION DATE: 12/23/181309 BAR PORTER: TOMMY 12/23/18 131 RPT#: [id number] DC DATE: STATUS: ADM IN [facility] [address] [place] [address] END OF REPORT
[2018-12-23 14:34] VITALS: Ht 157.5 cm; Wt 69.1 kg
[2018-12-23 16:41] VITALS: BP 134/55
[2018-12-23 20:24] VITALS: BP 120/45
[2018-12-24 00:28] VITALS: BP 110/46
[2018-12-24 04:45] VITALS: BP 132/58
[2018-12-24 04:54] LABS: BASOPHILS 0.3 % (0-2); EOSINOPHILS 3.6 % (0-7); HEMATOCRIT 34.2 % (36.0-48.0); HEMOGLOBIN 11.2 g/dL (12-16); IMMATURE GRANULOCYTES 0.1 % (0-5); LYMPHOCYTES 20.2 % (15-50); MCH 28.1 pg (26.0-34.0); MCHC 32.7 g/dL (31.0-37.0); MCV 85.7 fL (80.0-100.0); MEAN PLATELET VOLUME 10.2 fL (7.4-10.4); MONOCYTES 10.3 % (2-11); NEUTROPHILS 65.5 % (40-80); PLATELET COUNT 345 10x3/uL (130-400); RBC 3.99 10x6/uL (4.00-5.40)
[2018-12-24 04:59] LABS: WBC 7.3 10x3/uL (4.8-10.8)
[2018-12-24 05:19] LABS: BILIRUBIN - TOTAL 0.45 mg/dL (0.2-1.3); CALCIUM 8.9 mg/dL (8.5-10.1); CREATININE - SERUM 0.8 mg/dL (0.6-1.3); MAGNESIUM - SERUM 1.8 mg/dL (1.8-2.4); PHOSPHOROUS 3.1 mg/dL (2.5-4.9); PROTEIN - SERUM 6.7 g/dL (6.4-8.2)
[2018-12-24 05:33] LABS: ALBUMIN 3.2 g/dL (3.4-5.0); ANION GAP 13.1 mmol/L (8-16); POTASSIUM - SERUM 4.1 mmol/L (3.5-5.1)
[2018-12-24 09:36] VITALS: BP 142/55
--- NOTE | 2018-12-24 10:26 | NUR ---
MORNING ASSESSMENT COMPLETE. SEE ASSESSMENT FLOWSHEET FOR FURTHER DETAILS. PT LYING IN BED AAO X4 TO PERSON, PLACE, TIME, AND SITUATION. DENIES NEEDS AT THIS TIME. CL IN REACH. SIDE RAILS UP X3 FOR PT SAFETY. BED IN LOWEST POSITION.
[2018-12-24 17:43] VITALS: BP 140/56
[2018-12-24 21:00] VITALS: BP 134/62
[2018-12-25 00:46] VITALS: BP 114/72
[2018-12-25 05:06] VITALS: BP 165/72
[2018-12-25 05:59] LABS: ANION GAP 11.2 mmol/L (8-16); CALCIUM 9.4 mg/dL (8.5-10.1); CARBON DIOXIDE 24.9 mmol/L (21.0-32.0); CREATININE - SERUM 0.8 mg/dL (0.6-1.3); MAGNESIUM - SERUM 1.9 mg/dL (1.8-2.4); PHOSPHOROUS 2.7 mg/dL (2.5-4.9); POTASSIUM - SERUM 4.1 mmol/L (3.5-5.1)
[2018-12-25 06:15] LABS: BASOPHILS 0.5 % (0-2); EOSINOPHILS 6.2 % (0-7); HEMATOCRIT 35.4 % (36.0-48.0); HEMOGLOBIN 12.1 g/dL (12-16); IMMATURE GRANULOCYTES 0.2 % (0-5); LYMPHOCYTES 27.5 % (15-50); MCH 29.2 pg (26.0-34.0); MCHC 34.2 g/dL (31.0-37.0); MCV 85.3 fL (80.0-100.0); MEAN PLATELET VOLUME 10.3 fL (7.4-10.4); MONOCYTES 11.7 % (2-11); NEUTROPHILS 53.9 % (40-80); PLATELET COUNT 322 10x3/uL (130-400); RBC 4.15 10x6/uL (4.00-5.40); RDW 14.7 % (11.5-14.5); WBC 6.6 10x3/uL (4.8-10.8)
--- NOTE | 2018-12-25 07:48 | NUR ---
PT RESTING IN BED. CO OF "FEELING CONSTIPATED" PRUNE JUICE/SPRITE MIXTURE GIVEN. NO S/S OF ACUTE DISTRESS. CL IN PLACE.
[2018-12-25 08:30] VITALS: BP 155/58
[2018-12-25] MEDS ORDERED: LEVOFLOXACIN500 MG PO (08:52)
[2018-12-25] MEDS ORDERED: FLAGYL500 MG PO (08:53)
[2018-12-25] MEDS ORDERED: MIRALAX17 GM PO (08:54)
--- NOTE | 2018-12-25 11:43 | MORECARE ---
CASE MANAGEMENT DISCHARGE SUMMARY PATIENT: MANUEL ONOFRE UNIT: [id number] ADM DATE: 12/23/18 AGE: 83 : 36 SEX: F ROOM/BED: D.2211 AUTHOR: JUJU BAIRD PHYSICIAN: REFERRING PHYSICIAN: OSIRIS JEAN BAPTISTE MD DATE OF SERVICE: 12/25/18 Discharge Plan Patient Name: MANUEL ONOFRE Facility: [facility]:[place] : 1935 Planned Disposition: Home Anticipated Discharge Date: 12/26/18 Discharge Date: Expected LOS: 3 Initial Reviewer: [email or web address] Initial Review Date: 12/23/2018 Generated: 12/25/18 12:43 pm Comments DCP- Discharge Planning Updated by [email or web address]: Lena Chappell on 12/25/18 10:[address] CM met with patient, Cahty Onofre ([phone]) regasrding dc needs. Patient denies any dc needs. Plans to dc this afternoon, spouse will drive her home and potato picker any new medications. Patient states she uses a Walker [facility] and has a BSC. Pharmacy: [facility]. PCP: Dr. Bradshaw. Voices no other needs at this time. IMM signed per patient. Lena Chappell RN DCP- Discharge Planning Updated by [email or web address]: Mireya Garcia on 12/23/18 12:[address] Patient Name: MANUEL ONOFRE Admission Status: ER Accout number: [id number] Admission Date: 12-23-2018 : 1935 Admission Diagnosis: Attending: OSIRIS JEAN BAPTISTE Current LOS: 1 Anticipated DC Date: 12-26-2018 Planned Disposition: Home with . Primary Insurance: MEDICARE A & B Discharge Planning Comments: CM met with patient and her to complete initial dc planning assessment. CM educated patient on the CM role and verbal consent given by patient to complete assessment. CM verified patient's address, phone number, and emergency contact phone numbers. Patient lives at home with her . She reports she is mostly independent in her care at home but does not do much housework anymore. At discharge patient plans to return home and feels this is a safe discharge. CM discussed availability of home health, rehab services, and medical equipment. Patient denied known discharge needs at this time. Patient reports her will transport her home at time of discharge. CM will continue to follow and will assist as needed with dc plans/needs. Machinery Repair Maintenance Supervisor: Mireya Garcia RN, [facility] DCPIA - Discharge Planning Initial Assessment Updated by [email or web address]: Mireya Garcia on 12/23/18 1:06 pm * Is the patient Alert and Oriented? Yes * How many steps to enter\exit or inside your home? None * PCP Dr. Bradshaw * Pharmacy [facility] or [facility] in [place] * Preadmission Environment Home with Family * ADLs Independent * Equipment Rolling Walker * List name and contact numbers for known caregivers / representatives who currently or will assist patient after discharge: Lynda Dumont - shonna - [phone] * Verbal permission to speak to the caregivers and representatives has been obtained from the patient. Yes * Community resources currently utilized None * Additional services required to return to the preadmission environment? No * Can the patient safely return to the preadmission environment? Yes * Has this patient been hospitalized within the prior 30 days at any hospital? No Coverage Notice Reviewer: [email or web address] Fay Chappell Notice Issued Date-Time: 12/25/2018 11:24 Notice Type: IM Appeals Notice Notice Delivered To: Patient Relationship to Patient: Self Mussel Opener Name: Manuel Onofre Delivery Method: - Liliana Days: Prior Verbal Notification: Recipient Understood Notice: Recipient Signature: Med Rec Note Co-signed by Attending: Coverage Notice Comment: Last DP export: 12/23/18 12:11 pm Patient Name: MANUEL ONOFRE Page [phone] at 1143 All edits/amendments must be made on the electronic document DICTATION DATE: 12/25/18 1143 LONG GOODS DRIER: TOMMY 12/25/18 1143 RPT#: [id number] DC DATE: STATUS: ADM IN [facility] [address] [place] [address] END OF REPORT
--- NOTE | 2018-12-25 13:04 | NUR ---
AAOX4. NO IV NOTED. EDUCATION AND INSTRUCTIONS DONE WITH PT AND FAMILY. NO S/S OF ACUTE DISTRESS. TAMALE MACHINE FEEDER TOOK PT OFF FLOOR VIA WC. FAMILY AT BEDSIDE.
--- NOTE | 2018-12-26 15:01 | MORECARE ---
CASE MANAGEMENT DISCHARGE SUMMARY PATIENT: MANUEL ONOFRE UNIT: [id number] ADM DATE: 12/23/18 AGE: 83 : 36 SEX: F ROOM/BED: D.2211 AUTHOR: JUJU BAIRD PHYSICIAN: REFERRING PHYSICIAN: OSIRIS JEAN BAPTISTE MD DATE OF SERVICE: 12/26/18 Discharge Plan Patient Name: MANUEL ONOFRE Facility: [facility]:[place] : 1935 Planned Disposition: Home Anticipated Discharge Date: 12/26/18 Discharge Date: 12/25/2018 Expected LOS: 3 Initial Reviewer: [email or web address] Initial Review Date: 12/23/2018 Generated: 12/26/18 4:01 pm Comments DCP- Discharge Planning Updated by [email or web address]: Lena Chappell on 12/25/18 10:[address] CM met with patient, Cathy Onofre ([phone]) regasrding dc needs. Patient denies any dc needs. Plans to dc this afternoon, spouse will drive her home and tile picker any new medications. Patient states she uses a [facility] and has a BSC. Pharmacy: [facility]. PCP: Dr. Bradshaw. Voices no other needs at this time. IMM signed per patient. Lena Chappell RN DCP- Discharge Planning Updated by [email or web address]: Mireya Garcia on 12/23/18 12:[address] Patient Name: MANUEL ONOFRE Admission Status: ER Accout number: [id number] Admission Date: 12-23-2018 : 1935 Admission Diagnosis: Attending: OSIRIS JEAN BAPTISTE Current LOS: 1 Anticipated DC Date: 12-26-2018 Planned Disposition: Home with . Primary Insurance: MEDICARE A & B Discharge Planning Comments: CM met with patient and her to complete initial dc planning assessment. CM educated patient on the CM role and verbal consent given by patient to complete assessment. CM verified patient's address, phone number, and emergency contact phone numbers. Patient lives at home with her . She reports she is mostly independent in her care at home but does not do much housework anymore. At discharge patient plans to return home and feels this is a safe discharge. CM discussed availability of home health, rehab services, and medical equipment. Patient denied known discharge needs at this time. Patient reports her will transport her home at time of discharge. CM will continue to follow and will assist as needed with dc plans/needs. Inbound Sales Advisor: Mireya Garcia RN, [facility] DCPIA - Discharge Planning Initial Assessment Updated by [email or web address]: Mireya Garcia on 12/23/18 1:06 pm * Is the patient Alert and Oriented? Yes * How many steps to enter\exit or inside your home? None * PCP Dr. Bradshaw * Pharmacy [facility] or [facility] in [place] * Preadmission Environment Home with Family * ADLs Independent * Equipment Rolling Walker * List name and contact numbers for known caregivers / representatives who currently or will assist patient after discharge: Lynda Dumont - daughter - [phone] * Verbal permission to speak to the caregivers and representatives has been obtained from the patient. Yes * Community resources currently utilized None * Additional services required to return to the preadmission environment? No * Can the patient safely return to the preadmission environment? Yes * Has this patient been hospitalized within the prior 30 days at any hospital? No Coverage Notice Reviewer: [email or web address] Fay Chappell Notice Issued Date-Time: 12/25/2018 11:24 Notice Type: IM Appeals Notice Notice Delivered To: Patient Relationship to Patient: Self Dough Scaler And Mixer Name: Manuel Onofre Delivery Method: - Liliana Days: Prior Verbal Notification: Recipient Understood Notice: Recipient Signature: Med Rec Note Co-signed by Attending: Coverage Notice Comment: Last DP export: 12/25/18 10:43 am Patient Name: MANUEL ONOFRE Page [phone] at 1501 All edits/amendments must be made on the electronic document DICTATION DATE: 12/26/18 1500 ELECTRONICS TEACHER: TOMMY 12/26/18 1500 RPT#: [id number] DC DATE:12/25/18 STATUS: DIS IN [facility] [address] [place] [address] END OF REPORT
== END 2018-12-25 13:05 | disposition home or self-care (01) | DRG 758 ==
LOC: D.ER 09:33 → D.MS 12:30 → D.EDHOLD 12:30 → D.MS 12:46
PROVIDERS: Family Medicine; ADMIT Internal Medicine Nephrology; ATTEND Internal Medicine Nephrology
DX: N76.0 Acute vaginitis (principal); K57.92 Diverticulitis of intestine, part unspecified, without perforation or abscess without bleeding; N17.9 Acute kidney failure, unspecified; E87.1 Hypo-osmolality and hyponatremia; Z91.81 History of falling; E11.649 Type 2 diabetes mellitus with hypoglycemia without coma; I10 Essential (primary) hypertension; E78.5 Hyperlipidemia, unspecified; G89.29 Other chronic pain; M54.5 Low back pain